=== PATIENT | male | born 1965 | race Caucasian/White ===

== ENCOUNTER → 2024-09-25 | Outpatient (CLI) | payer OTHER ==
--- NOTE | 2024-09-26 18:53 | XR ---
EXAMINATION TYPE: XR foot complete RT DATE OF EXAM: 09/25/2024 5:24 PM COMPARISON: None. CLINICAL INDICATION: Male, 59 years old with history of M79.671, M79.89,pain in right foot across bas e of toes extending from 1st toe to 4th toe TECHNIQUE: XR foot complete RT view(s) obtained. FINDINGS: No acute fracture or dislocation evident. Joint spaces are preserved. Soft tissues appear normal. Follow-up exams can be performed 7-10 days from acute trauma for continued pain. IMPRESSION: 1. No acute osseous abnormality right foot [facility] Josiane Das, Workstation: [facility], 09/26/2024 6:50 PM
== END | disposition home or self-care (01) ==
LOC: RADXRMAIN 16:55
PROVIDERS: ATTEND Family Medicine
DX: M79.671 Pain in right foot (principal); M79.89 Other specified soft tissue disorders